=== PATIENT | female | born 1995 | race Caucasian/White ===

== ENCOUNTER 2019-03-08 08:54 | Outpatient (CLI) | payer OTHER ==
[~2019-03-08] VITALS: Ht 162.6 cm; Wt 93.0 kg
[~2019-03-08 08:54] MED LIST: NO HOME MEDICATIONS
[2019-03-08 09:23] VITALS: BP 119/70; PULSE 107; TEMP 98.7
--- NOTE | 2019-03-08 11:20 | NUR ---
Report from Wiliam CUMMINGS from lab coordinator. Loop recorder placement complete. Pt magdalena well. Pt resting well, at bedside.
[2019-03-08 11:25] VITALS: BP 120/65; PULSE 102; TEMP 98.5
--- NOTE | 2019-03-08 11:50 | NUR ---
Pt discharged per w/c by nurse with .
== END 2019-03-08 12:00 | disposition home or self-care (01) ==
LOC: COL.CAR 08:54
DX: R00.2 Palpitations (principal); R42 Dizziness and giddiness; Z88.5 Allergy status to narcotic agent; Z91.040 Latex allergy status

== ENCOUNTER 2019-09-19 09:26 | Outpatient (CLI) | payer OTHER ==
[~2019-09-19] VITALS: Ht 162.7 cm; Wt 96.8 kg
[2019-09-19 09:45] VITALS: BP 114/69; PULSE 90; TEMP 99.1
[2019-09-19] MEDS ORDERED: CARDIZEM120 MG PO (09:45)
[2019-09-19 14:25] VITALS: BP 100/68; PULSE 96
--- NOTE | 2019-09-19 14:42 | NUR ---
Pt is dressed and ready for discharge, iv has been dc'd with cath intact (pt had 24 g to rfa), dressing was applied. pt has been ambulatory with steady gait in room, no dizziness reported at this time. I escorted pt out via wheelchair at this time, after reviewing dc/fu instructions. pt denied questions.
== END 2019-09-19 14:52 | disposition home or self-care (01) ==
LOC: COL.CAR 09:26
DX: I49.8 Other specified cardiac arrhythmias (principal); Q21.0 Ventricular septal defect; N76.0 Acute vaginitis; Z82.3 Family history of stroke; Z80.9 Family history of malignant neoplasm, unspecified; Z88.8 Allergy status to other drugs, medicaments and biological substances; Z88.5 Allergy status to narcotic agent; Z91.040 Latex allergy status

== ENCOUNTER → 2019-10-12 | Outpatient (CLI) | payer OTHER ==
[~2019-10-12] MED LIST changes: +CARDIZEM120 MG PO
== END ==
LOC: COL.CARD 13:00
DX: R55 Syncope and collapse (principal); Z87.898 Personal history of other specified conditions

== ENCOUNTER → 2020-11-06 | Outpatient (REF) | LOC: COL.LAB 13:39 → EDSTATUS 13:42 | DX: Z20.822 Contact with and (suspected) exposure to COVID-19 (principal) ==

== ENCOUNTER → 2020-11-11 | Outpatient (REF) | LOC: COL.LAB 14:08 | DX: Z20.822 Contact with and (suspected) exposure to COVID-19 (principal) ==